=== PATIENT | male | born 1955 | race Caucasian/White ===

== ENCOUNTER 2018-10-28 08:11 | Day surgery (SDC) | payer MEDICARE, MEDICAID ==
[~2018-10-28 08:11] MED LIST: AMLO2.5T2 PO; ASPI-1009 PO; BECL8.7A5 IH; GLIP10TA11 PO; LISI-222 PO; METF500T PO; METO25TA6 PO; PANT-47 PO; PRAV10TA38 PO
[2018-10-28] MEDS ORDERED: LIDOcaine/PRILOcaine 5gm cream TP ONE (10:03)
--- NOTE | 2018-10-28 11:30 | NUR ---
Patient ambulated independently from [facility] and was admitted to outpatient wound care for physician visit with Matthew Santos MD. Dressing removed, wound cleansed. New patient assessment completed with review of patient's medical history and current medications. 0957 - blood glucose 189. Patient instructed that elevated blood sugars delay healing of the wound and can cause further complications including but not limited to amputation of toes or feet. 1045 - Dr. Santos at bedside accompanied by RN. Wound assessed, time out performed by MD/RN. Wound debrided as detailed in the physician progress/procedure note. Plan of care discussed with patient. Dressings placed per MD orders. Patient instructed on the signs and symptoms of infection and to call the Wound Center if any occur or to go to the ED if we are closed: Increased pain in wound Increase in drainage from the wound Redness in the skin surrounding the wound Bleeding from the wound Temperature of 101 or greater Patient instructed that the weight of their body puts a large amount of pressure on their wounds. This pressure keeps the new tissue from growing and inhibits new blood vessels from forming. Explained that, if they continue to bear weight on a body part that has a wound, the time it takes to heal the wound increases, the wound may get worse or the wound may not heal at all. Patient verbalized understanding of all discharge instructions and plan of care and ambulated independently out to [facility] in stable condition with no sign or symptom of distress at time of discharge.
[2018-10-28] MEDS ORDERED: SULF-14 PO (15:06)
[2018-10-28] MEDS ORDERED: NITR0.4T51 SL (15:06)
[2018-10-28] MEDS ORDERED: FLO0.4C PO (15:06)
[2018-10-28] MEDS ORDERED: ROSU20TA2 PO (15:06)
[2018-10-28] MEDS ORDERED: EMPA10TA PO (15:06)
[2018-10-28] MEDS ORDERED: ERGO50CA (15:06)
[2018-10-28] MEDS ORDERED: FURO-150 PO (15:06)
[2018-10-28] MEDS ORDERED: BUDE10.2 INH (15:06)
[2018-10-28] MEDS ORDERED: ISOS30TA9 PO (15:06)
== END 2018-10-28 11:00 | disposition home or self-care (01) ==
LOC: WOUND CARE 08:11
PROVIDERS: ATTEND Surgery
DX: E11.621 Type 2 diabetes mellitus with foot ulcer (principal); L97.412 Non-pressure chronic ulcer of right heel and midfoot with fat layer exposed; E11.65 Type 2 diabetes mellitus with hyperglycemia; E11.40 Type 2 diabetes mellitus with diabetic neuropathy, unspecified
CPT/HCPCS: 36416; 82948; 97597; A6196; A6446

== ENCOUNTER 2018-11-01 09:26 | Day surgery (SDC) | payer MEDICARE, MEDICAID ==
[~2018-11-01 09:26] MED LIST changes: -BECL8.7A5 IH; +BUDE10.2 INH; +EMPA10TA PO; +ERGO50CA; +FLO0.4C PO; +FURO-150 PO; +ISOS30TA9 PO; +NITR0.4T51 SL; -PANT-47 PO; -PRAV10TA38 PO; +ROSU20TA2 PO; +SULF-14 PO
--- NOTE | 2018-11-01 13:00 | NUR ---
Patient ambulated independently from [facility] and was admitted to outpatient wound care for physician visit with Matthew Santos MD. Dressing removed, wound cleansed. pbx technician to bedside for arterial studies. Patient assessed for changes in conditions, medications and medical history. 1114 - blood glucose 105. Patient instructed that elevated blood sugars delay healing of the wound and can cause further complications including but not limited to amputation of toes or feet. 1220 - Dr. Santos at bedside accompanied by RN. Wound assessed, time out performed by MD/RN. Wound debrided as detailed in the physician progress/procedure note. Plan of care discussed with patient. Dressings placed per MD orders. Patient instructed on the signs and symptoms of infection and to call the Wound Center if any occur or to go to the ED if we are closed: Increased pain in wound Increase in drainage from the wound Redness in the skin surrounding the wound Bleeding from the wound Temperature of 101 or greater Patient instructed that the weight of their body puts a large amount of pressure on their wounds. This pressure keeps the new tissue from growing and inhibits new blood vessels from forming. Explained that, if they continue to bear weight on a body part that has a wound, the time it takes to heal the wound increases, the wound may get worse or the wound may not heal at all. Patient verbalized understanding of all discharge instructions and plan of care and ambulated independently out to [facility] in stable condition with no sign or symptom of distress at time of discharge.
[2018-11-01] MEDS ORDERED: CEPH-572 PO (15:12)
[2018-11-03] MEDS ORDERED: BENZ-16 PO (12:54)
[2018-11-03] MEDS ORDERED: AZIT-63 PO (12:54)
[2018-11-03] MEDS ORDERED: PRED20TA PO (12:54)
== END 2018-11-01 13:01 | disposition home or self-care (01) ==
LOC: WOUND CARE 09:26
PROVIDERS: ATTEND Surgery
DX: E11.621 Type 2 diabetes mellitus with foot ulcer (principal); L97.412 Non-pressure chronic ulcer of right heel and midfoot with fat layer exposed; L97.311 Non-pressure chronic ulcer of right ankle limited to breakdown of skin; L89.512 Pressure ulcer of right ankle, stage 2; E11.65 Type 2 diabetes mellitus with hyperglycemia; I48.92 Unspecified atrial flutter; E11.39 Type 2 diabetes mellitus with other diabetic ophthalmic complication; H40.9 Unspecified glaucoma; I12.9 Hypertensive chronic kidney disease with stage 1 through stage 4 chronic kidney disease, or unspecified chronic kidney disease; E11.22 Type 2 diabetes mellitus with diabetic chronic kidney disease; N18.4 Chronic kidney disease, stage 4 (severe); D63.1 Anemia in chronic kidney disease; J44.9 Chronic obstructive pulmonary disease, unspecified; E78.5 Hyperlipidemia, unspecified; Z79.01 Long term (current) use of anticoagulants; Z95.1 Presence of aortocoronary bypass graft; Z79.82 Long term (current) use of aspirin; Z87.891 Personal history of nicotine dependence
CPT/HCPCS: 36416; 82948; 93922; 93926; 97597; A6196; A6446

== ENCOUNTER 2018-11-08 07:40 | Day surgery (SDC) | payer MEDICARE, MEDICAID ==
[~2018-11-08 07:40] MED LIST changes: +AZIT-63 PO; +BENZ-16 PO; +CEPH-572 PO; +PRED20TA PO
[2018-11-08] MEDS ORDERED: LIDOcaine/PRILOcaine 5gm cream TP ONE (09:33)
--- NOTE | 2018-11-08 15:17 | NUR ---
Patient ambulated independently from [facility] and was admitted to outpatient wound care for physician visit. Dressings removed, wound cleansed. Patient assessment completed with review of patient's medical history and current medications. Blood Glucose= 148 @ 0842 1505-Dr. Santos at bedside accompanied by RN. Wound assessed, time-out performed by MD/RN. Wound debrided as detailed in the physician progress/procedure note. Plan of care discussed with patient. Dressings placed per MD orders. Patient instructed on the signs and symptoms of infection and to call the Wound Center if any occur or to go to the ED if we are closed: Increased pain in the wound Increase in drainage from the wound Redness in the skin surrounding the wound Bleeding from the wound Temperature of 101F or greater Patient instructed that the weight of their body puts a large amount of pressure on their wounds. This pressure keeps the new tissue from growing and inhibits new blood vessels from forming. Explained that, if they continue to bear weight on a body part that has a wound, the time it takes to heal the wound increases, the wound may get worse, or the wound may not heal at all. Patient verbalized understanding of all discharge instructions and plan of care. Patient ambulated independently out to [facility] in stable condition with no signs or symptoms of distress at time of discharge.
== END 2018-11-08 10:11 | disposition home or self-care (01) ==
LOC: WOUND CARE 07:40
PROVIDERS: ATTEND Surgery
DX: E11.621 Type 2 diabetes mellitus with foot ulcer (principal); L97.412 Non-pressure chronic ulcer of right heel and midfoot with fat layer exposed; L89.512 Pressure ulcer of right ankle, stage 2; E11.65 Type 2 diabetes mellitus with hyperglycemia; I48.92 Unspecified atrial flutter; E11.39 Type 2 diabetes mellitus with other diabetic ophthalmic complication; H40.9 Unspecified glaucoma; I12.9 Hypertensive chronic kidney disease with stage 1 through stage 4 chronic kidney disease, or unspecified chronic kidney disease; E11.22 Type 2 diabetes mellitus with diabetic chronic kidney disease; N18.4 Chronic kidney disease, stage 4 (severe); D63.1 Anemia in chronic kidney disease; J44.9 Chronic obstructive pulmonary disease, unspecified; E78.5 Hyperlipidemia, unspecified; Z79.01 Long term (current) use of anticoagulants; Z95.1 Presence of aortocoronary bypass graft; Z79.82 Long term (current) use of aspirin; Z87.891 Personal history of nicotine dependence
CPT/HCPCS: 36416; 82948; 97597; A6021; A6446

== ENCOUNTER 2018-11-12 07:24 | Day surgery (SDC) | payer MEDICARE, MEDICAID ==
[~2018-11-12] VITALS: Ht 175.3 cm; Wt 91.5 kg
[~2018-11-12 07:24] MED LIST changes: -PRED20TA PO
[2018-11-12] MEDS ORDERED: sodium bicarbonate (8.4%) inj. 150 ML in dextrose 5%-water 1,000 ML IV ONE (07:55)
[2018-11-12] MEDS ORDERED: acetylcysteine 200 MG/ml 4ml vial PO SCH (08:00)
[2018-11-12] MEDS ORDERED: METO-467 PO (08:08)
[2018-11-12] MEDS ORDERED: EMPA10TA PO (08:14)
[2018-11-12] MEDS ORDERED: BENZ-16 PO (08:14)
[2018-11-12] MEDS ORDERED: ROSU20TA2 PO (08:14)
[2018-11-12] MEDS ORDERED: GLIP10TA11 PO (08:14)
[2018-11-12 08:22] VITALS: BP 138/74
[2018-11-12] MEDS ORDERED: iohexol 350MG/ML 100ml bottle IV ONE (09:32)
[2018-11-12] MEDS ORDERED: iohexol 350 MG/ML 50ML vial IV ONE (09:33)
[2018-11-12 15:15] VITALS: BP 132/73
[2018-11-13] MEDS ORDERED: MESSAGE TO NURSING PO NR (10:00)
== END 2018-11-12 15:15 | disposition home or self-care (01) ==
LOC: SSTAY O 07:24
PROVIDERS: ATTEND Surgery
DX: I70.203 Unspecified atherosclerosis of native arteries of extremities, bilateral legs (principal)
CPT/HCPCS: 75635; 82948; Q9967

== ENCOUNTER 2018-11-15 07:55 | Day surgery (SDC) | payer MEDICARE, MEDICAID ==
[~2018-11-15 07:55] MED LIST changes: -ASPI-1009 PO; -AZIT-63 PO; -CEPH-572 PO; +METO-467 PO; -METO25TA6 PO; -SULF-14 PO
[2018-11-15] MEDS ORDERED: LIDOcaine/PRILOcaine 5gm cream TP ONE (09:43)
--- NOTE | 2018-11-15 16:17 | NUR ---
Patient ambulated independently from [facility] and was admitted to outpatient wound care for physician visit with Matthew Santos MD. Dressing removed, wound cleansed and Emla cream applied per order. Patient assessed for changes in conditions, medications and medical history. Dr. Santos at bedside accompanied by RN. Wound assessed, time out performed by MD/RN. Wound debrided as detailed in the physician progress/procedure note. Matrix graft applied. Plan of care discussed with patient. Dressings placed per MD orders. Patient instructed on the signs and symptoms of infection and to call the Wound Center if any occur or to go to the ED if we are closed: Increased pain in wound Increase in drainage from the wound Redness in the skin surrounding the wound Bleeding from the wound Temperature of 101 or greater Patient instructed that elevated blood sugars delay healing of the wound and can cause further complications including but not limited to amputation of toes or feet. Patient instructed that the weight of their body puts a large amount of pressure on their wounds. This pressure keeps the new tissue from growing and inhibits new blood vessels from forming. Explained that, if they continue to bear weight on a body part that has a wound, the time it takes to heal the wound increases, the wound may get worse or the wound may not heal at all. Patient verbalized understanding of all discharge instructions and plan of care and ambulated independently out to [facility] in stable condition with no sign or symptom of distress at time of discharge. Addendum: 11/15/18 at 1619 by Jen Rosa RN Amended: Links added.
== END 2018-11-15 10:05 | disposition home or self-care (01) ==
LOC: WOUND CARE 07:55
PROVIDERS: ATTEND Surgery
DX: E11.621 Type 2 diabetes mellitus with foot ulcer (principal); L97.412 Non-pressure chronic ulcer of right heel and midfoot with fat layer exposed; L97.511 Non-pressure chronic ulcer of other part of right foot limited to breakdown of skin; E11.65 Type 2 diabetes mellitus with hyperglycemia; I48.92 Unspecified atrial flutter; E11.39 Type 2 diabetes mellitus with other diabetic ophthalmic complication; H40.9 Unspecified glaucoma; E11.40 Type 2 diabetes mellitus with diabetic neuropathy, unspecified; I12.9 Hypertensive chronic kidney disease with stage 1 through stage 4 chronic kidney disease, or unspecified chronic kidney disease; E11.22 Type 2 diabetes mellitus with diabetic chronic kidney disease; N18.4 Chronic kidney disease, stage 4 (severe); D63.1 Anemia in chronic kidney disease; J44.9 Chronic obstructive pulmonary disease, unspecified; E78.5 Hyperlipidemia, unspecified; Z79.01 Long term (current) use of anticoagulants; Z95.1 Presence of aortocoronary bypass graft; Z79.82 Long term (current) use of aspirin; Z87.891 Personal history of nicotine dependence
CPT/HCPCS: 36416; 82948; A6209; C5275; Q4102; A6250; A6446

== ENCOUNTER 2018-11-22 07:50 | Day surgery (SDC) | payer MEDICARE, MEDICAID ==
--- NOTE | 2018-11-22 15:11 | NUR ---
Patient ambulated independently from [facility] and was admitted to outpatient wound care for physician visit with Matthew Santos MD. Dressing removed, wound cleansed and lidocaine applied per order. Patient assessed for changes in conditions, medications and medical history. Dr. Santos at bedside accompanied by RN. Wound assessed, time out performed by MD/RN. Wound debrided as detailed in the physician progress/procedure note. Plan of care discussed with patient. Dressings placed per MD orders. Patient instructed on the signs and symptoms of infection and to call the Wound Center if any occur or to go to the ED if we are closed: Increased pain in wound Increase in drainage from the wound Redness in the skin surrounding the wound Bleeding from the wound Temperature of 101 or greater Patient instructed that elevated blood sugars delay healing of the wound and can cause further complications including but not limited to amputation of toes or feet. Patient instructed that the weight of their body puts a large amount of pressure on their wounds. This pressure keeps the new tissue from growing and inhibits new blood vessels from forming. Explained that, if they continue to bear weight on a body part that has a wound, the time it takes to heal the wound increases, the wound may get worse or the wound may not heal at all. Patient verbalized understanding of all discharge instructions and plan of care and ambulated independently out to [facility] in stable condition with no sign or symptom of distress at time of discharge. Addendum: 11/22/18 at 1512 by Jen Rosa RN Amended: Links added.
== END 2018-11-22 10:25 | disposition home or self-care (01) ==
LOC: WOUND CARE 07:50
PROVIDERS: ATTEND Surgery
DX: E11.621 Type 2 diabetes mellitus with foot ulcer (principal); L97.412 Non-pressure chronic ulcer of right heel and midfoot with fat layer exposed; L97.511 Non-pressure chronic ulcer of other part of right foot limited to breakdown of skin; E11.65 Type 2 diabetes mellitus with hyperglycemia; I48.92 Unspecified atrial flutter; E11.39 Type 2 diabetes mellitus with other diabetic ophthalmic complication; H40.9 Unspecified glaucoma; E11.40 Type 2 diabetes mellitus with diabetic neuropathy, unspecified; I12.9 Hypertensive chronic kidney disease with stage 1 through stage 4 chronic kidney disease, or unspecified chronic kidney disease; E11.22 Type 2 diabetes mellitus with diabetic chronic kidney disease; N18.4 Chronic kidney disease, stage 4 (severe); D63.1 Anemia in chronic kidney disease; J44.9 Chronic obstructive pulmonary disease, unspecified; E78.5 Hyperlipidemia, unspecified; Z79.01 Long term (current) use of anticoagulants; Z95.1 Presence of aortocoronary bypass graft; Z79.82 Long term (current) use of aspirin; Z87.891 Personal history of nicotine dependence
CPT/HCPCS: 36416; 82948; A6021; A6206; A6446

== ENCOUNTER 2018-11-29 07:45 | Day surgery (SDC) | payer MEDICARE, MEDICAID ==
[2018-11-29] MEDS ORDERED: LIDOcaine/PRILOcaine 5gm cream TP ONE (08:45)
--- NOTE | 2018-11-29 10:00 | NUR ---
Patient ambulated independently from [facility] and was admitted to outpatient wound care for physician visit with Matthew Santos MD. Dressing removed, wound cleansed and Emla cream applied per order. Patient assessed for changes in conditions, medications and medical history. 08 - blood glucose 122. Patient instructed that elevated blood sugars delay healing of the wound and can cause further complications including but not limited to amputation of toes or feet. 929 - Dr. Santos at bedside accompanied by RN. Wound assessed, time out performed by MD/RN. Wound debrided and procedure performed as detailed in the physician progress/procedure note. Plan of care discussed with patient. Dressings placed per MD orders. Patient instructed on the signs and symptoms of infection and to call the Wound Center if any occur or to go to the ED if we are closed: Increased pain in wound Increase in drainage from the wound Redness in the skin surrounding the wound Bleeding from the wound Temperature of 101 or greater Patient instructed that the weight of their body puts a large amount of pressure on their wounds. This pressure keeps the new tissue from growing and inhibits new blood vessels from forming. Explained that, if they continue to bear weight on a body part that has a wound, the time it takes to heal the wound increases, the wound may get worse or the wound may not heal at all. Patient verbalized understanding of all discharge instructions and plan of care and ambulated independently out to [facility] in stable condition with no sign or symptom of distress at time of discharge.
== END 2018-11-29 10:08 | disposition home or self-care (01) ==
LOC: WOUND CARE 07:45
PROVIDERS: ATTEND Surgery
DX: E11.621 Type 2 diabetes mellitus with foot ulcer (principal); L97.412 Non-pressure chronic ulcer of right heel and midfoot with fat layer exposed; L97.511 Non-pressure chronic ulcer of other part of right foot limited to breakdown of skin; E11.65 Type 2 diabetes mellitus with hyperglycemia; I48.92 Unspecified atrial flutter; E11.39 Type 2 diabetes mellitus with other diabetic ophthalmic complication; H40.9 Unspecified glaucoma; E11.40 Type 2 diabetes mellitus with diabetic neuropathy, unspecified; I12.9 Hypertensive chronic kidney disease with stage 1 through stage 4 chronic kidney disease, or unspecified chronic kidney disease; E11.22 Type 2 diabetes mellitus with diabetic chronic kidney disease; N18.4 Chronic kidney disease, stage 4 (severe); D63.1 Anemia in chronic kidney disease; J44.9 Chronic obstructive pulmonary disease, unspecified; E78.5 Hyperlipidemia, unspecified; Z79.01 Long term (current) use of anticoagulants; Z95.1 Presence of aortocoronary bypass graft; Z79.82 Long term (current) use of aspirin; Z87.891 Personal history of nicotine dependence
CPT/HCPCS: 15275; 36416; 82948; A6209; Q4106; A6250; A6446

== ENCOUNTER 2018-12-06 07:45 | Outpatient (CLI) | payer MEDICARE, MEDICAID ==
--- NOTE | 2018-12-06 10:30 | NUR ---
Patient ambulated independently from [facility] and was admitted to outpatient wound care for physician visit with Matthew Santos MD. Dressing removed, wound cleansed and lidocaine applied per order. Patient assessed for changes in conditions, medications and medical history. 0846 - blood glucose 143. Patient instructed that elevated blood sugars delay healing of the wound and can cause further complications including but not limited to amputation of toes or feet. 09 - Dr. Santos at bedside accompanied by RN. Wound assessed by MD, orders written. Plan of care discussed with patient. Dressings placed per MD orders. Patient instructed on the signs and symptoms of infection and to call the Wound Center if any occur or to go to the ED if we are closed: Increased pain in wound Increase in drainage from the wound Redness in the skin surrounding the wound Bleeding from the wound Temperature of 101 or greater Patient instructed that the weight of their body puts a large amount of pressure on their wounds. This pressure keeps the new tissue from growing and inhibits new blood vessels from forming. Explained that, if they continue to bear weight on a body part that has a wound, the time it takes to heal the wound increases, the wound may get worse or the wound may not heal at all. Patient verbalized understanding of all discharge instructions and plan of care and ambulated independently out to [facility] in stable condition with no sign or symptom of distress at time of discharge.
== END 2018-12-06 09:50 | disposition home or self-care (01) ==
LOC: WOUND CARE 07:45 → EDSTATUS 08:30 → WOUND CARE 09:50
PROVIDERS: ATTEND Surgery
DX: E11.621 Type 2 diabetes mellitus with foot ulcer (principal); L97.412 Non-pressure chronic ulcer of right heel and midfoot with fat layer exposed; L97.511 Non-pressure chronic ulcer of other part of right foot limited to breakdown of skin; E11.65 Type 2 diabetes mellitus with hyperglycemia; I48.92 Unspecified atrial flutter; E11.39 Type 2 diabetes mellitus with other diabetic ophthalmic complication; H40.9 Unspecified glaucoma; E11.40 Type 2 diabetes mellitus with diabetic neuropathy, unspecified; I12.9 Hypertensive chronic kidney disease with stage 1 through stage 4 chronic kidney disease, or unspecified chronic kidney disease; E11.22 Type 2 diabetes mellitus with diabetic chronic kidney disease; N18.4 Chronic kidney disease, stage 4 (severe); D63.1 Anemia in chronic kidney disease; J44.9 Chronic obstructive pulmonary disease, unspecified; E78.5 Hyperlipidemia, unspecified; Z79.01 Long term (current) use of anticoagulants; Z95.1 Presence of aortocoronary bypass graft; Z79.82 Long term (current) use of aspirin; Z87.891 Personal history of nicotine dependence
CPT/HCPCS: 36416; 82948; A6222; G0463; A6021; A6212

== ENCOUNTER 2018-12-16 07:45 | Day surgery (SDC) | payer MEDICARE, MEDICAID ==
[2018-12-16] MEDS ORDERED: LIDOcaine/PRILOcaine 5gm cream TP ONE (09:05)
--- NOTE | 2018-12-16 13:46 | NUR ---
Patient ambulated independently from [facility] and was admitted to outpatient wound care for physician visit with Matthew Santos MD. Dressing removed, wound cleansed and lidocaine applied per order. Patient assessed for changes in conditions, medications and medical history. Dr. Santos at bedside accompanied by RN. Wound assessed and no debridement was done. Plan of care discussed with patient. Dressings placed per MD orders. Patient instructed on the signs and symptoms of infection and to call the Wound Center if any occur or to go to the ED if we are closed: Increased pain in wound Increase in drainage from the wound Redness in the skin surrounding the wound Bleeding from the wound Temperature of 101 or greater Patient instructed that elevated blood sugars delay healing of the wound and can cause further complications including but not limited to amputation of toes or feet. Patient instructed that the weight of their body puts a large amount of pressure on their wounds. This pressure keeps the new tissue from growing and inhibits new blood vessels from forming. Explained that, if they continue to bear weight on a body part that has a wound, the time it takes to heal the wound increases, the wound may get worse or the wound may not heal at all. Patient verbalized understanding of all discharge instructions and plan of care and ambulated independently out to [facility] in stable condition with no sign or symptom of distress at time of discharge. Addendum: 12/16/18 at 1352 by Jen Rosa RN Amended: Links added.
== END 2018-12-16 10:05 | disposition home or self-care (01) ==
LOC: WOUND CARE 07:45
PROVIDERS: ATTEND Surgery
DX: E11.621 Type 2 diabetes mellitus with foot ulcer (principal); L97.412 Non-pressure chronic ulcer of right heel and midfoot with fat layer exposed; L97.511 Non-pressure chronic ulcer of other part of right foot limited to breakdown of skin; E11.65 Type 2 diabetes mellitus with hyperglycemia; E11.39 Type 2 diabetes mellitus with other diabetic ophthalmic complication; H40.9 Unspecified glaucoma; E11.40 Type 2 diabetes mellitus with diabetic neuropathy, unspecified; I12.9 Hypertensive chronic kidney disease with stage 1 through stage 4 chronic kidney disease, or unspecified chronic kidney disease; E11.22 Type 2 diabetes mellitus with diabetic chronic kidney disease; N18.4 Chronic kidney disease, stage 4 (severe); D63.1 Anemia in chronic kidney disease; I48.92 Unspecified atrial flutter; J44.9 Chronic obstructive pulmonary disease, unspecified; E78.5 Hyperlipidemia, unspecified; Z79.01 Long term (current) use of anticoagulants; Z95.1 Presence of aortocoronary bypass graft; Z79.82 Long term (current) use of aspirin; Z87.891 Personal history of nicotine dependence
CPT/HCPCS: 36416; 82948; G0463; A6021; A6206

== ENCOUNTER 2018-12-20 07:45 | Day surgery (SDC) | payer MEDICARE, MEDICAID ==
[2018-12-20] MEDS ORDERED: LIDOcaine/PRILOcaine 5gm cream TP ONE ×2 (09:02→09:17)
--- NOTE | 2018-12-20 10:30 | NUR ---
Patient ambulated independently from [facility] and was admitted to outpatient wound care for physician visit with Matthew Santos MD. Dressing removed, wound cleansed and Emla cream applied per order. Patient assessed for changes in conditions, medications and medical history. 903 - blood glucose 139. Patient instructed that elevated blood sugars delay healing of the wound and can cause further complications including but not limited to amputation of toes or feet. 939 - Dr. Santos at bedside accompanied by RN. Wound assessed, time out performed by MD/RN. Wound debrided as detailed in the physician progress/procedure note. Plan of care discussed with patient. Dressings placed per MD orders. Patient instructed on the signs and symptoms of infection and to call the Wound Center if any occur or to go to the ED if we are closed: Increased pain in wound Increase in drainage from the wound Redness in the skin surrounding the wound Bleeding from the wound Temperature of 101 or greater Patient instructed that the weight of their body puts a large amount of pressure on their wounds. This pressure keeps the new tissue from growing and inhibits new blood vessels from forming. Explained that, if they continue to bear weight on a body part that has a wound, the time it takes to heal the wound increases, the wound may get worse or the wound may not heal at all. Patient verbalized understanding of all discharge instructions and plan of care and ambulated independently out to [facility] in stable condition with no sign or symptom of distress at time of discharge.
== END 2018-12-20 09:59 | disposition home or self-care (01) ==
LOC: WOUND CARE 07:45 → EDSTATUS 08:00 → WOUND CARE 09:59
PROVIDERS: ATTEND Surgery
DX: E11.621 Type 2 diabetes mellitus with foot ulcer (principal); L97.412 Non-pressure chronic ulcer of right heel and midfoot with fat layer exposed; L97.511 Non-pressure chronic ulcer of other part of right foot limited to breakdown of skin; E11.65 Type 2 diabetes mellitus with hyperglycemia; E11.39 Type 2 diabetes mellitus with other diabetic ophthalmic complication; H40.9 Unspecified glaucoma; E11.40 Type 2 diabetes mellitus with diabetic neuropathy, unspecified; I12.9 Hypertensive chronic kidney disease with stage 1 through stage 4 chronic kidney disease, or unspecified chronic kidney disease; E11.22 Type 2 diabetes mellitus with diabetic chronic kidney disease; N18.4 Chronic kidney disease, stage 4 (severe); D63.1 Anemia in chronic kidney disease; I48.92 Unspecified atrial flutter; J44.9 Chronic obstructive pulmonary disease, unspecified; E78.5 Hyperlipidemia, unspecified; Z79.01 Long term (current) use of anticoagulants; Z95.1 Presence of aortocoronary bypass graft; Z79.82 Long term (current) use of aspirin; Z87.891 Personal history of nicotine dependence
CPT/HCPCS: 36416; 82948; 97597; A6021; A6206; A6446

== ENCOUNTER 2018-12-27 07:50 | Day surgery (SDC) | payer MEDICARE, MEDICAID ==
[2018-12-27] MEDS ORDERED: LIDOcaine/PRILOcaine 5gm cream TP ONE (08:56)
--- NOTE | 2018-12-27 14:18 | NUR ---
Patient ambulated independently from [facility] and was admitted to outpatient wound care for physician visit with Matthew Santos MD. Dressing removed, wound cleansed and lidocaine applied per order. Patient assessed for changes in conditions, medications and medical history. Dr. Santos at bedside accompanied by RN. Wound assessed, time out performed by MD/RN. Wound debrided as detailed in the physician progress/procedure note. Plan of care discussed with patient. Dressings placed per MD orders. Patient instructed on the signs and symptoms of infection and to call the Wound Center if any occur or to go to the ED if we are closed: Increased pain in wound Increase in drainage from the wound Redness in the skin surrounding the wound Bleeding from the wound Temperature of 101 or greater Patient instructed that elevated blood sugars delay healing of the wound and can cause further complications including but not limited to amputation of toes or feet. Patient instructed that the weight of their body puts a large amount of pressure on their wounds. This pressure keeps the new tissue from growing and inhibits new blood vessels from forming. Explained that, if they continue to bear weight on a body part that has a wound, the time it takes to heal the wound increases, the wound may get worse or the wound may not heal at all. Patient verbalized understanding of all discharge instructions and plan of care and ambulated independently out to [facility] in stable condition with no sign or symptom of distress at time of discharge. Addendum: 12/27/18 at 1419 by Jen Rosa RN Amended: Links added.
== END 2018-12-27 10:30 | disposition home or self-care (01) ==
LOC: WOUND CARE 07:50
PROVIDERS: ATTEND Surgery
DX: E11.621 Type 2 diabetes mellitus with foot ulcer (principal); L97.412 Non-pressure chronic ulcer of right heel and midfoot with fat layer exposed; L97.511 Non-pressure chronic ulcer of other part of right foot limited to breakdown of skin; E11.65 Type 2 diabetes mellitus with hyperglycemia; E11.39 Type 2 diabetes mellitus with other diabetic ophthalmic complication; H40.9 Unspecified glaucoma; E11.40 Type 2 diabetes mellitus with diabetic neuropathy, unspecified; I12.9 Hypertensive chronic kidney disease with stage 1 through stage 4 chronic kidney disease, or unspecified chronic kidney disease; E11.22 Type 2 diabetes mellitus with diabetic chronic kidney disease; N18.4 Chronic kidney disease, stage 4 (severe); D63.1 Anemia in chronic kidney disease; I48.92 Unspecified atrial flutter; J44.9 Chronic obstructive pulmonary disease, unspecified; E78.5 Hyperlipidemia, unspecified; Z79.01 Long term (current) use of anticoagulants; Z95.1 Presence of aortocoronary bypass graft; Z79.82 Long term (current) use of aspirin; Z87.891 Personal history of nicotine dependence
CPT/HCPCS: 15275; 82948; A6209; A6222; Q4106; 15276; A6250; A6446

== ENCOUNTER 2019-01-03 07:56 | Day surgery (SDC) | payer MEDICARE, MEDICAID ==
--- NOTE | 2019-01-03 14:00 | NUR ---
Patient ambulated independently from [facility] and was admitted to outpatient wound care for physician visit with Matthew Santos MD. Dressing removed, wound cleansed and lidocaine applied per order. Patient assessed for changes in conditions, medications and medical history. Dr. Santos at bedside accompanied by RN. Wound assessed, time out performed by MD/RN. Wound debrided as detailed in the physician progress/procedure note. applied a graft. Plan of care discussed with patient. Dressings placed per MD orders. Patient instructed on the signs and symptoms of infection and to call the Wound Center if any occur or to go to the ED if we are closed: Increased pain in wound Increase in drainage from the wound Redness in the skin surrounding the wound Bleeding from the wound Temperature of 101 or greater Patient instructed that elevated blood sugars delay healing of the wound and can cause further complications including but not limited to amputation of toes or feet. Patient instructed that the weight of their body puts a large amount of pressure on their wounds. This pressure keeps the new tissue from growing and inhibits new blood vessels from forming. Explained that, if they continue to bear weight on a body part that has a wound, the time it takes to heal the wound increases, the wound may get worse or the wound may not heal at all. Patient verbalized understanding of all discharge instructions and plan of care and ambulated independently out to [facility] in stable condition with no sign or symptom of distress at time of discharge. Addendum: 01/03/19 at 1403 by Jen Rosa RN Amended: Links added.
== END 2019-01-03 10:34 | disposition home or self-care (01) ==
LOC: WOUND CARE 07:56
PROVIDERS: ATTEND Surgery
DX: E11.621 Type 2 diabetes mellitus with foot ulcer (principal); L97.412 Non-pressure chronic ulcer of right heel and midfoot with fat layer exposed; L97.511 Non-pressure chronic ulcer of other part of right foot limited to breakdown of skin; E11.65 Type 2 diabetes mellitus with hyperglycemia; E11.39 Type 2 diabetes mellitus with other diabetic ophthalmic complication; H40.9 Unspecified glaucoma; E11.40 Type 2 diabetes mellitus with diabetic neuropathy, unspecified; I12.9 Hypertensive chronic kidney disease with stage 1 through stage 4 chronic kidney disease, or unspecified chronic kidney disease; E11.22 Type 2 diabetes mellitus with diabetic chronic kidney disease; N18.4 Chronic kidney disease, stage 4 (severe); D63.1 Anemia in chronic kidney disease; I48.92 Unspecified atrial flutter; J44.9 Chronic obstructive pulmonary disease, unspecified; E78.5 Hyperlipidemia, unspecified; Z79.01 Long term (current) use of anticoagulants; Z95.1 Presence of aortocoronary bypass graft; Z79.82 Long term (current) use of aspirin; Z87.891 Personal history of nicotine dependence
CPT/HCPCS: 15275; 36416; 82948; A6209; A6222; Q4106; A6250; A6446

== ENCOUNTER 2019-01-31 07:45 | Outpatient (CLI) | payer MEDICARE, MEDICAID ==
[2019-01-31] MEDS ORDERED: LIDOcaine/PRILOcaine 5gm cream TP ONE (08:40)
--- NOTE | 2019-01-31 16:12 | NUR ---
Patient ambulated independently from [facility] and was admitted to outpatient wound care for physician visit with Matthew Santos MD. Dressing removed, wound cleansed and Emla cream applied per order. Patient assessed for changes in conditions, medications and medical history. Dr. Santos at bedside accompanied by RN. Wound assessed and no debridement was done. Plan of care discussed with patient. Dressings placed per MD orders. Patient instructed on the signs and symptoms of infection and to call the Wound Center if any occur or to go to the ED if we are closed: Increased pain in wound Increase in drainage from the wound Redness in the skin surrounding the wound Bleeding from the wound Temperature of 101 or greater Patient instructed that elevated blood sugars delay healing of the wound and can cause further complications including but not limited to amputation of toes or feet. Patient instructed that the weight of their body puts a large amount of pressure on their wounds. This pressure keeps the new tissue from growing and inhibits new blood vessels from forming. Explained that, if they continue to bear weight on a body part that has a wound, the time it takes to heal the wound increases, the wound may get worse or the wound may not heal at all. Patient verbalized understanding of all discharge instructions and plan of care and ambulated independently out to [facility] in stable condition with no sign or symptom of distress at time of discharge. Addendum: 01/31/19 at 1613 by Jen Rosa RN Amended: Links added.
== END 2019-01-31 09:45 | disposition home or self-care (01) ==
LOC: WOUND CARE 07:45 → EDSTATUS 08:30 → WOUND CARE 09:45
PROVIDERS: ATTEND Surgery
DX: E11.621 Type 2 diabetes mellitus with foot ulcer (principal); L97.412 Non-pressure chronic ulcer of right heel and midfoot with fat layer exposed; L97.511 Non-pressure chronic ulcer of other part of right foot limited to breakdown of skin; E11.65 Type 2 diabetes mellitus with hyperglycemia; E11.39 Type 2 diabetes mellitus with other diabetic ophthalmic complication; H40.9 Unspecified glaucoma; E11.40 Type 2 diabetes mellitus with diabetic neuropathy, unspecified; I12.9 Hypertensive chronic kidney disease with stage 1 through stage 4 chronic kidney disease, or unspecified chronic kidney disease; E11.22 Type 2 diabetes mellitus with diabetic chronic kidney disease; N18.4 Chronic kidney disease, stage 4 (severe); D63.1 Anemia in chronic kidney disease; I48.92 Unspecified atrial flutter; J44.9 Chronic obstructive pulmonary disease, unspecified; E78.5 Hyperlipidemia, unspecified; Z79.01 Long term (current) use of anticoagulants; Z95.1 Presence of aortocoronary bypass graft; Z79.82 Long term (current) use of aspirin; Z87.891 Personal history of nicotine dependence
CPT/HCPCS: 36416; 82948; G0463; A4663; A6021; A6154; A6212

== ENCOUNTER 2019-02-07 07:45 | Day surgery (SDC) | payer MEDICARE, MEDICAID | END 2019-02-07 09:53 | disposition home or self-care (01) | LOC: WOUND CARE 07:45 | PROVIDERS: ATTEND Surgery | DX: E11.621 Type 2 diabetes mellitus with foot ulcer (principal); L97.412 Non-pressure chronic ulcer of right heel and midfoot with fat layer exposed; L97.511 Non-pressure chronic ulcer of other part of right foot limited to breakdown of skin; E11.65 Type 2 diabetes mellitus with hyperglycemia; E11.39 Type 2 diabetes mellitus with other diabetic ophthalmic complication; H40.9 Unspecified glaucoma; E11.40 Type 2 diabetes mellitus with diabetic neuropathy, unspecified; I12.9 Hypertensive chronic kidney disease with stage 1 through stage 4 chronic kidney disease, or unspecified chronic kidney disease; E11.22 Type 2 diabetes mellitus with diabetic chronic kidney disease; N18.4 Chronic kidney disease, stage 4 (severe); D63.1 Anemia in chronic kidney disease; I48.92 Unspecified atrial flutter; J44.9 Chronic obstructive pulmonary disease, unspecified; E78.5 Hyperlipidemia, unspecified; Z79.01 Long term (current) use of anticoagulants; Z95.1 Presence of aortocoronary bypass graft; Z79.82 Long term (current) use of aspirin; Z87.891 Personal history of nicotine dependence | CPT/HCPCS: 36416; 82948; 97597; A6222; A4663; A6021; A6154; A6212 ==

== ENCOUNTER 2019-02-23 07:29 | Outpatient (CLI) | payer MEDICARE, MEDICAID ==
[~2019-02-23 07:29] MED LIST changes: -FLO0.4C PO
== END 2019-02-23 10:12 | disposition home or self-care (01) ==
LOC: WOUND CARE 07:29 → EDSTATUS 08:30 → WOUND CARE 10:12
PROVIDERS: ATTEND Surgery
DX: E11.621 Type 2 diabetes mellitus with foot ulcer (principal); L97.412 Non-pressure chronic ulcer of right heel and midfoot with fat layer exposed; L97.511 Non-pressure chronic ulcer of other part of right foot limited to breakdown of skin; E11.65 Type 2 diabetes mellitus with hyperglycemia; E11.39 Type 2 diabetes mellitus with other diabetic ophthalmic complication; H40.9 Unspecified glaucoma; E11.40 Type 2 diabetes mellitus with diabetic neuropathy, unspecified; I12.9 Hypertensive chronic kidney disease with stage 1 through stage 4 chronic kidney disease, or unspecified chronic kidney disease; E11.22 Type 2 diabetes mellitus with diabetic chronic kidney disease; N18.4 Chronic kidney disease, stage 4 (severe); D63.1 Anemia in chronic kidney disease; I48.92 Unspecified atrial flutter; J44.9 Chronic obstructive pulmonary disease, unspecified; E78.5 Hyperlipidemia, unspecified; Z79.01 Long term (current) use of anticoagulants; Z95.1 Presence of aortocoronary bypass graft; Z79.82 Long term (current) use of aspirin; Z87.891 Personal history of nicotine dependence
CPT/HCPCS: 36416; 82948; 97597; A4663; A6021; A6154; A6212; A6446

== ENCOUNTER 2019-02-28 07:45 | Day surgery (SDC) | payer MEDICARE, MEDICAID | END 2019-02-28 09:18 | disposition home or self-care (01) | LOC: WOUND CARE 07:45 | PROVIDERS: ATTEND Surgery | DX: E11.621 Type 2 diabetes mellitus with foot ulcer (principal); L97.412 Non-pressure chronic ulcer of right heel and midfoot with fat layer exposed; L97.511 Non-pressure chronic ulcer of other part of right foot limited to breakdown of skin; E11.65 Type 2 diabetes mellitus with hyperglycemia; E11.39 Type 2 diabetes mellitus with other diabetic ophthalmic complication; H40.9 Unspecified glaucoma; E11.40 Type 2 diabetes mellitus with diabetic neuropathy, unspecified; I12.9 Hypertensive chronic kidney disease with stage 1 through stage 4 chronic kidney disease, or unspecified chronic kidney disease; E11.22 Type 2 diabetes mellitus with diabetic chronic kidney disease; N18.4 Chronic kidney disease, stage 4 (severe); D63.1 Anemia in chronic kidney disease; I48.92 Unspecified atrial flutter; J44.9 Chronic obstructive pulmonary disease, unspecified; E78.5 Hyperlipidemia, unspecified; Z79.01 Long term (current) use of anticoagulants; Z95.1 Presence of aortocoronary bypass graft; Z79.82 Long term (current) use of aspirin; Z87.891 Personal history of nicotine dependence | CPT/HCPCS: 36416; 82948; G0463; A4663 ==

== ENCOUNTER 2021-05-13 11:39 | Inpatient (IN) | payer MEDICARE, MEDICAID ==
[~2021-05-13] VITALS: Ht 175.3 cm; Wt 86.4 kg
[~2021-05-13 11:39] MED LIST changes: +ASPI-611 PO; -BENZ-16 PO; -EMPA10TA PO; +EMPA25TA PO; +FLO0.4C PO; +ISOS30TA84 PO; -ISOS30TA9 PO; -LISI-222 PO; +LISI20TA28 PO; +OMEG-79 PO
--- NOTE | 2021-05-13 12:15 | NUR ---
Pt is awake and alert. Pt was sent from [facility] due to sob and +Covid 19(new dx). Pt c/o cough with brown sputum and generalized weakness. Crackles and rhonchi B bases. Pt is on home O2 2L. Upon assessement he was on 3L NC and sats were 89%. Increased O2 to 5L NC. Now sats 92%.
[2021-05-13 13:12] LABS: BASOPHILS % (AUTO) 0.3 % (0-1); EOSINOPHILS % (AUTO) 0 % (0-6); HEMATOCRIT 39.5 % (42.0-52.0); HEMOGLOBIN 13.6 g/dl (14.0-17.9); LYMPHOCYTES # (AUTO) 0.7 X10'3 (1.1-4.8); LYMPHOCYTES % (AUTO) 12.2 % (21-51); MEAN CORPUSCULAR HEMOGLOBIN 29.1 PG (27.0-31.0); MEAN CORPUSCULAR HGB CONC 34.3 g/dL (33.0-36.5); MEAN CORPUSCULAR VOLUME 84.7 FL (78-98); MEAN PLATELET VOLUME 8.4 FL (7.4-10.4); MONOCYTES # (AUTO) 0.5 X10'3 (0-0.9); MONOCYTES % (AUTO) 9.6 % (2-12); NEUTROPHILS # (AUTO) 4.2 X10'3 (1.8-7.7); NEUTROPHILS % (AUTO) 77.9 % (42-75); PLATELET COUNT 185 X10'3 (140-440); RED BLOOD COUNT 4.66 X10'6 (4.70-6.10); RED CELL DISTRIBUTION WIDTH 14.2 % (11.5-14.5); WHITE BLOOD COUNT 5.4 X10'3 (4.5-11.0)
[2021-05-13 13:19] LABS: D-DIMER 1.49 MG/L FEU (0-0.50)
[2021-05-13 13:23] LABS: ALANINE AMINOTRANSFERASE 35 U/L (12-78); ALBUMIN 3.4 G/DL (3.4-5.0); ALBUMIN/GLOBULIN RATIO 0.9 (1.1-1.5); ALKALINE PHOSPHATASE 54 IU/L (46-116); ANION GAP 13 (8-16); ASPARTATE AMINO TRANSFERASE 45 U/L (10-37); BILIRUBIN,TOTAL 0.5 MG/DL (0.1-1.0); BLOOD UREA NITROGEN 54 MG/DL (7-18); CALCIUM 8.4 MG/DL (8.5-10.1); CHLORIDE 99 MMOL/L (99-107); GLUCOSE 216 MG/DL (70-104); POTASSIUM 4.9 MMOL/L (3.5-5.1); SODIUM 133 MMOL/L (135-145); TOTAL CARBON DIOXIDE 21.1 MMOL/L (24-32); TOTAL PROTEIN 7.2 G/DL (6.4-8.2); eGFR 38 ML/MIN
[2021-05-13] MEDS ORDERED: ringers solution, lactated 1000ml IV soln IV ONE (13:40)
[2021-05-13] MEDS ORDERED: dexamethasone sod phosphate 10mg/ml inj IV STA (13:55)
[2021-05-13] MEDS ORDERED: REMDESIVIR INJ 200 MG in normal saline 100ml IV soln 60 ML IV ONE (13:55)
[2021-05-13] MEDS ORDERED: dextrose 50%-water 50ml dispensing syringe IV PRN ×2 (14:05)
[2021-05-13] MEDS ORDERED: MESSAGE TO PHARMACY PO ONE (14:05)
[2021-05-13] MEDS ORDERED: HYDROcodone/acetaminophen 5mg/325mg tablet PO PRN (14:05)
[2021-05-13] MEDS ORDERED: morphine 2 MG/ML inj. syringe IV PRN ×2 (14:05)
[2021-05-13] MEDS ORDERED: ondansetron/PF 4mg/2ml inj IV PRN (14:05)
[2021-05-13] MEDS ORDERED: mag hydrox/Alum hydrox/simeth 30ml oral suspension PO PRN (14:05)
[2021-05-13] MEDS ORDERED: magnesium hydroxide 30ml (MOM) UD suspension PO PRN (14:05)
[2021-05-13] MEDS ORDERED: glucagon, human recombinant 1mg kit SUBCUT PRN (14:05)
[2021-05-13] MEDS ORDERED: acetaminophen 325mg tablet PO PRN ×2 (14:05)
[2021-05-13] MEDS ORDERED: dextrose ORAL solution 15 GM/59 ML bottle PO PRN ×2 (14:05)
[2021-05-13] MEDS ORDERED: HYDROcodone/acetaminophen 10/325mg tab PO PRN (14:05)
[2021-05-13] MEDS ORDERED: enoxaparin 100mg/ml syringe SUBCUT ONE (14:10)
[2021-05-13] MEDS ORDERED: REMDESIVIR 200 MG in NS 100ml IVPB Loading dose IV ONE (14:20)
[2021-05-13 14:42] LABS: PHOSPHORUS 4.7 MG/DL (2.3-4.5)
[2021-05-13 15:04] LABS: HEMOGLOBIN A1C 7.8 % (4.5-6.2)
[2021-05-13] MEDS ORDERED: ALBU18HF2 PO (15:12)
--- NOTE | 2021-05-13 17:34 | NUR ---
SISTER CALLED FOR UPDATE. WANTS A CALL BACK WHEN WE CAN. HER NUMBER IS IN HIS DEMOGRAPHICS
[2021-05-13] MEDS ORDERED: nitroGLYCERIN 0.4mg SUBLingual tab SL PRN (18:15)
--- NOTE | 2021-05-13 18:40 | NUR ---
Report given to HIREN Chaudhry in Ortho Unit.
[2021-05-13 19:15] VITALS: BP 138/67
[2021-05-13] MEDS: dexamethasone sod phosphate 10mg/ml inj IV SCH (19:59)
[2021-05-13] MEDS: metoprolol tartrate 25mg tablet PO SCH (20:00)
[2021-05-13] MEDS: docusate sod 100mg capsule PO SCH (20:00)
[2021-05-13] MEDS: insulin glargine (Lantus) pen - multi-dose SQ SCH (21:16)
[2021-05-13] MEDS: insulin Lispro (HumaLOG) vial - multi-dose SQ SCH (21:17)
[2021-05-13 22:00] VITALS: BP 126/70
[2021-05-14 02:00] VITALS: BP 147/80
[2021-05-14 06:00] VITALS: BP 151/76
--- NOTE | 2021-05-14 06:09 | NUR ---
Problems reprioritized. Patient report given, questions answered & plan of care reviewed with HIREN LOPEZ.
--- NOTE | 2021-05-14 06:17 | NUR ---
Patient in room ORTHO 4020A. I have received report from HIREN ACEVEDO and had the opportunity to ask questions and assume patient care.
[2021-05-14] MEDS: OMEGA-3/DHA/EPA/FISH OIL 1 EACH CAPSULE.DR PO SCH (07:39)
[2021-05-14] MEDS: dexamethasone sod phosphate 10mg/ml inj IV SCH ×2 (07:39→19:03)
[2021-05-14] MEDS: REMDESIVIR 100 MG in NS 100ml IVPB IV SCH (07:39)
[2021-05-14] MEDS: metoprolol tartrate 25mg tablet PO SCH ×2 (07:40→20:00)
[2021-05-14] MEDS: amLODIPine 2.5mg tablet PO SCH (07:40)
[2021-05-14] MEDS: lisinopril 20mg tablet PO SCH (07:40)
[2021-05-14] MEDS: docusate sod 100mg capsule PO SCH ×2 (07:41→20:00)
[2021-05-14] MEDS: aspirin 81mg, enteric-coated 1 TAB TABLET.DR PO SCH (07:41)
[2021-05-14] MEDS: isosorbide mononitrate 30mg tab.SR.24H PO SCH (07:41)
[2021-05-14] MEDS: furosemide 20MG tablet PO SCH (07:41)
[2021-05-14] MEDS: atorvastatin 20mg tablet PO SCH (07:41)
[2021-05-14 08:02] LABS: BASOPHILS % (AUTO) 0.1 % (0-1); EOSINOPHILS % (AUTO) 0 % (0-6); HEMATOCRIT 39.3 % (42.0-52.0); HEMOGLOBIN 13.4 g/dl (14.0-17.9); LYMPHOCYTES # (AUTO) 0.4 X10'3 (1.1-4.8); MEAN CORPUSCULAR HEMOGLOBIN 29.1 PG (27.0-31.0); MEAN CORPUSCULAR HGB CONC 34.1 g/dL (33.0-36.5); MEAN CORPUSCULAR VOLUME 85.2 FL (78-98); MEAN PLATELET VOLUME 8.5 FL (7.4-10.4); MONOCYTES # (AUTO) 0.4 X10'3 (0-0.9); MONOCYTES % (AUTO) 8.7 % (2-12); NEUTROPHILS # (AUTO) 3.6 X10'3 (1.8-7.7); NEUTROPHILS % (AUTO) 81.2 % (42-75); PLATELET COUNT 178 X10'3 (140-440); RED BLOOD COUNT 4.61 X10'6 (4.70-6.10); WHITE BLOOD COUNT 4.5 X10'3 (4.5-11.0)
[2021-05-14 08:24] LABS: ANION GAP 10 (8-16); BLOOD UREA NITROGEN 49 MG/DL (7-18); BUN/CREATININE RATIO 31.6 (5.4-32.0); CALCIUM 8.7 MG/DL (8.5-10.1); CHLORIDE 102 MMOL/L (99-107); CREATININE 1.55 MG/DL (0.60-1.10); GLUCOSE 245 MG/DL (70-104); POTASSIUM 5.4 MMOL/L (3.5-5.1); SODIUM 136 MMOL/L (135-145); TOTAL CARBON DIOXIDE 24.5 MMOL/L (24-32); eGFR 45 ML/MIN
[2021-05-14] MEDS: insulin Lispro (HumaLOG) vial - multi-dose SQ SCH ×4 (09:28→20:42)
[2021-05-14 10:00] VITALS: BP 139/95
--- NOTE | 2021-05-14 13:59 | NUR ---
DM Consult: Pt hx T2DM A1C 7.8 takes metformin BID, Glipizide Q12H, and daily Jardiance per EMR. DX COVID-19 pt increased to 15L high low salter from prior 5L NC per EMR. DM ed deferred until more appropriate this admit. Addendum: 05/14/21 at [address] Amended: Links added.
[2021-05-14 14:00] VITALS: BP 94/53
[2021-05-14 18:00] VITALS: BP 88/48
--- NOTE | 2021-05-14 18:16 | NUR ---
Patient in room ORTHO 4020. I have received report from HIREN LOPEZ and had the opportunity to ask questions and assume patient care.
--- NOTE | 2021-05-14 18:17 | NUR ---
Problems reprioritized. Patient report given, questions answered & plan of care reviewed with HIREN ACEVEDO.
[2021-05-14] MEDS: enoxaparin 40mg/0.4ml syringe SUBCUT SCH (19:04)
[2021-05-14] MEDS: insulin glargine (Lantus) pen - multi-dose SQ SCH (20:42)
[2021-05-14 22:00] VITALS: BP 122/66
[2021-05-15 02:00] VITALS: BP 124/61
--- NOTE | 2021-05-15 06:22 | NUR ---
Problems reprioritized. Patient report given, questions answered & plan of care reviewed with HIREN BARLOW.
[2021-05-15] MEDS: lisinopril 20mg tablet PO SCH (08:00)
[2021-05-15] MEDS: metoprolol tartrate 25mg tablet PO SCH ×2 (08:00→20:00)
[2021-05-15 08:14] LABS: BASOPHILS % (AUTO) 0 % (0-1); EOSINOPHILS % (AUTO) 0 % (0-6); HEMATOCRIT 37.7 % (42.0-52.0); HEMOGLOBIN 12.9 g/dl (14.0-17.9); LYMPHOCYTES # (AUTO) 0.5 X10'3 (1.1-4.8); LYMPHOCYTES % (AUTO) 6.7 % (21-51); MEAN CORPUSCULAR HEMOGLOBIN 28.9 PG (27.0-31.0); MEAN CORPUSCULAR HGB CONC 34.1 g/dL (33.0-36.5); MEAN CORPUSCULAR VOLUME 84.9 FL (78-98); MEAN PLATELET VOLUME 8.5 FL (7.4-10.4); MONOCYTES # (AUTO) 0.6 X10'3 (0-0.9); MONOCYTES % (AUTO) 7.5 % (2-12); NEUTROPHILS # (AUTO) 6.3 X10'3 (1.8-7.7); NEUTROPHILS % (AUTO) 85.8 % (42-75); PLATELET COUNT 227 X10'3 (140-440); RED BLOOD COUNT 4.45 X10'6 (4.70-6.10); RED CELL DISTRIBUTION WIDTH 14.1 % (11.5-14.5); WHITE BLOOD COUNT 7.4 X10'3 (4.5-11.0)
[2021-05-15 08:41] LABS: ALBUMIN 2.9 G/DL (3.4-5.0); ANION GAP 11 (8-16); BLOOD UREA NITROGEN 54 MG/DL (7-18); CALCIUM 8.3 MG/DL (8.5-10.1); CHLORIDE 101 MMOL/L (99-107); CREATININE 1.46 MG/DL (0.60-1.10); GLUCOSE 233 MG/DL (70-104); POTASSIUM 4.9 MMOL/L (3.5-5.1); SODIUM 136 MMOL/L (135-145); TOTAL CARBON DIOXIDE 24.1 MMOL/L (24-32); eGFR 48 ML/MIN
[2021-05-15] MEDS: dexamethasone sod phosphate 10mg/ml inj IV SCH ×2 (08:45→19:45)
[2021-05-15] MEDS: atorvastatin 20mg tablet PO SCH (08:46)
[2021-05-15] MEDS: furosemide 20MG tablet PO SCH (08:46)
[2021-05-15] MEDS: REMDESIVIR 100 MG in NS 100ml IVPB IV SCH (08:46)
[2021-05-15] MEDS: docusate sod 100mg capsule PO SCH ×2 (08:47→19:45)
[2021-05-15] MEDS: amLODIPine 2.5mg tablet PO SCH (08:47)
[2021-05-15] MEDS: OMEGA-3/DHA/EPA/FISH OIL 1 EACH CAPSULE.DR PO SCH (08:49)
[2021-05-15] MEDS: isosorbide mononitrate 30mg tab.SR.24H PO SCH (08:49)
[2021-05-15] MEDS: aspirin 81mg, enteric-coated 1 TAB TABLET.DR PO SCH (08:49)
[2021-05-15] MEDS: insulin Lispro (HumaLOG) vial - multi-dose SQ SCH ×2 (09:12→18:01)
--- NOTE | 2021-05-15 11:18 | NUR ---
O2 Sat at rest on room air:__88_% If below 89%: Recovery O2 Sat at rest on _4__LPM:___%:___% via nasal cannula (mask/nasal cannula, etc..) No further documentation is necessary. If O2 Sat did not drop below 89% on room air,ambulate patient on room air. O2 Sat while ambulating on room air:___% Recovery O2 Sat while ambulating on ___LPM:___% No further documentation is necessary. If patient does not drop below 89% while ambulating, he/she does not qualify for home O2.
[2021-05-15 11:23] VITALS: BP 95/60
[2021-05-15 11:56] LABS: D-DIMER 0.98 MG/L FEU (0-0.50)
[2021-05-15 17:18] VITALS: BP 98/50
[2021-05-15 18:00] VITALS: BP 76/53
[2021-05-15] MEDS ORDERED: ringers solution, lacted 1,000 ML IV ONE (19:20)
[2021-05-15] MEDS: enoxaparin 40mg/0.4ml syringe SUBCUT SCH (19:45)
--- NOTE | 2021-05-15 20:32 | NUR ---
Call placed to MD about blood pressure bei8ng low 77/49. Patient not in any apprent distress. Dr Esparza placed orders for a Bolus of LR followed by a continuous infusion of LR at 120. He said to follow the urine output and call him back to decrease the rate to 100ml/hr if the output is "adequate".
[2021-05-15] MEDS: ringers solution, lacted 1,000 ML IV SCH (21:03)
--- NOTE | 2021-05-15 21:37 | NUR ---
BB 164/79, P70 on left arm, 175/89 on right arm after the bolus of fluid. Dr. Vilma Swann made aware and requested to hold the fluid for now. Will continue to monitor.
[2021-05-15 22:00] VITALS: BP 159/79
[2021-05-15] MEDS: insulin glargine (Lantus) pen - multi-dose SQ SCH (22:37)
--- NOTE | 2021-05-16 00:07 | NUR ---
BS was 54 and asymptomatic. PO Juice given after one hour BS 112. Bedtime snack provided and ate 100%, No S/S of hypo/ hyperglycemia and S/S of hypo/hypertensive reaction at this time. Will continue to monitor.
[2021-05-16 02:00] VITALS: BP 148/76
[2021-05-16] MEDS: ringers solution, lacted 1,000 ML IV SCH ×3 (03:40→20:15)
[2021-05-16 06:00] VITALS: BP 182/94
[2021-05-16 07:32] LABS: D-DIMER 0.72 MG/L FEU (0-0.50)
[2021-05-16 07:42] LABS: BASOPHILS % (AUTO) 0.1 % (0-1); EOSINOPHILS % (AUTO) 0 % (0-6); HEMATOCRIT 37.5 % (42.0-52.0); HEMOGLOBIN 13.1 g/dl (14.0-17.9); LYMPHOCYTES # (AUTO) 0.6 X10'3 (1.1-4.8); LYMPHOCYTES % (AUTO) 6.2 % (21-51); MEAN CORPUSCULAR HEMOGLOBIN 29.1 PG (27.0-31.0); MEAN CORPUSCULAR HGB CONC 34.8 g/dL (33.0-36.5); MEAN CORPUSCULAR VOLUME 83.6 FL (78-98); MEAN PLATELET VOLUME 8.3 FL (7.4-10.4); MONOCYTES # (AUTO) 0.8 X10'3 (0-0.9); MONOCYTES % (AUTO) 8.3 % (2-12); NEUTROPHILS # (AUTO) 8.3 X10'3 (1.8-7.7); NEUTROPHILS % (AUTO) 85.4 % (42-75); PLATELET COUNT 251 X10'3 (140-440); RED BLOOD COUNT 4.48 X10'6 (4.70-6.10); RED CELL DISTRIBUTION WIDTH 13.8 % (11.5-14.5); WHITE BLOOD COUNT 9.7 X10'3 (4.5-11.0)
[2021-05-16 07:54] LABS: ALBUMIN 2.7 G/DL (3.4-5.0); ANION GAP 12 (8-16); BLOOD UREA NITROGEN 50 MG/DL (7-18); BUN/CREATININE RATIO 40.3 (5.4-32.0); C-REACTIVE PROTEIN 2.16 MG/DL (0.0-0.5); CALCIUM 8.5 MG/DL (8.5-10.1); CHLORIDE 103 MMOL/L (99-107); CREATININE 1.24 MG/DL (0.60-1.10); GLUCOSE 181 MG/DL (70-104); POTASSIUM 4.8 MMOL/L (3.5-5.1); SODIUM 136 MMOL/L (135-145); TOTAL CARBON DIOXIDE 20.8 MMOL/L (24-32); eGFR 58 ML/MIN
[2021-05-16] MEDS: dexamethasone sod phosphate 10mg/ml inj IV SCH ×2 (08:37→20:12)
[2021-05-16] MEDS: amLODIPine 2.5mg tablet PO SCH (08:38)
[2021-05-16] MEDS: furosemide 20MG tablet PO SCH (08:38)
[2021-05-16] MEDS: aspirin 81mg, enteric-coated 1 TAB TABLET.DR PO SCH (08:38)
[2021-05-16] MEDS: isosorbide mononitrate 30mg tab.SR.24H PO SCH (08:38)
[2021-05-16] MEDS: OMEGA-3/DHA/EPA/FISH OIL 1 EACH CAPSULE.DR PO SCH (08:38)
[2021-05-16] MEDS: docusate sod 100mg capsule PO SCH ×2 (08:38→20:14)
[2021-05-16] MEDS: lisinopril 20mg tablet PO SCH (08:39)
[2021-05-16] MEDS: atorvastatin 20mg tablet PO SCH (08:39)
[2021-05-16] MEDS: metoprolol tartrate 25mg tablet PO SCH ×2 (08:39→20:14)
[2021-05-16] MEDS: insulin Lispro (HumaLOG) vial - multi-dose SQ SCH ×3 (09:31→20:20)
[2021-05-16 11:00] VITALS: BP 126/81
[2021-05-16] MEDS: REMDESIVIR 100 MG in NS 100ml IVPB IV SCH (11:05)
[2021-05-16 15:00] VITALS: BP 90/43
[2021-05-16 18:00] VITALS: BP 107/65
--- NOTE | 2021-05-16 18:15 | NUR ---
Patient in room ORTHO 4020. I have received report from HIREN Meng and had the opportunity to ask questions and assume patient care.
[2021-05-16] MEDS: enoxaparin 40mg/0.4ml syringe SUBCUT SCH (20:12)
[2021-05-16 22:00] VITALS: BP 105/71
[2021-05-16] MEDS: insulin glargine (Lantus) pen - multi-dose SQ SCH (22:12)
[2021-05-17 02:00] VITALS: BP 119/68
[2021-05-17] MEDS: ringers solution, lacted 1,000 ML IV SCH ×3 (04:56→21:11)
[2021-05-17 05:00] VITALS: BP 140/81
--- NOTE | 2021-05-17 05:30 | NUR ---
Patient slept well through the night, no s/s of hypo/hyperglycemia noted. No s/s of hypotension during my shift. Tolerated all meds well. Safety measures and comfort maintained. Will continue to monitor.
--- NOTE | 2021-05-17 06:09 | NUR ---
Problems reprioritized. Patient report given, questions answered & plan of care reviewed with HIREN Meng.
[2021-05-17] MEDS: REMDESIVIR 100 MG in NS 100ml IVPB IV SCH (07:57)
[2021-05-17] MEDS: dexamethasone sod phosphate 10mg/ml inj IV SCH ×2 (07:57→18:47)
[2021-05-17] MEDS: OMEGA-3/DHA/EPA/FISH OIL 1 EACH CAPSULE.DR PO SCH (07:57)
[2021-05-17] MEDS: atorvastatin 20mg tablet PO SCH (07:59)
[2021-05-17] MEDS: aspirin 81mg, enteric-coated 1 TAB TABLET.DR PO SCH (07:59)
[2021-05-17] MEDS: furosemide 20MG tablet PO SCH (08:00)
[2021-05-17] MEDS: isosorbide mononitrate 30mg tab.SR.24H PO SCH (08:00)
[2021-05-17] MEDS ORDERED: ergocalciferol (vit D2) capsule 50,000 UNITS (1,250mcg) CAPSULE PO SCH (08:00)
[2021-05-17] MEDS: metoprolol tartrate 25mg tablet PO SCH ×2 (08:00→18:54)
[2021-05-17] MEDS: docusate sod 100mg capsule PO SCH ×2 (08:00→18:47)
[2021-05-17] MEDS: amLODIPine 2.5mg tablet PO SCH (08:00)
[2021-05-17] MEDS: lisinopril 20mg tablet PO SCH (08:01)
[2021-05-17] MEDS: insulin Lispro (HumaLOG) vial - multi-dose SQ SCH ×3 (08:17→18:49)
[2021-05-17 08:28] LABS: HEMATOCRIT 40.2 % (42.0-52.0); HEMOGLOBIN 13.9 g/dl (14.0-17.9); MEAN CORPUSCULAR HGB CONC 34.5 g/dL (33.0-36.5); MEAN CORPUSCULAR VOLUME 84.1 FL (78-98); RED BLOOD COUNT 4.78 X10'6 (4.70-6.10); RED CELL DISTRIBUTION WIDTH 13.8 % (11.5-14.5); WHITE BLOOD COUNT 8.5 X10'3 (4.5-11.0)
[2021-05-17 08:29] LABS: BASOPHILS % (AUTO) 0.3 % (0-1); EOSINOPHILS % (AUTO) 0 % (0-6); LYMPHOCYTES # (AUTO) 0.5 X10'3 (1.1-4.8); LYMPHOCYTES % (AUTO) 6.1 % (21-51); MEAN PLATELET VOLUME 8.2 FL (7.4-10.4); MONOCYTES # (AUTO) 0.8 X10'3 (0-0.9); MONOCYTES % (AUTO) 9.4 % (2-12); NEUTROPHILS # (AUTO) 7.2 X10'3 (1.8-7.7); NEUTROPHILS % (AUTO) 84.2 % (42-75); PLATELET COUNT 245 X10'3 (140-440)
[2021-05-17 08:37] LABS: D-DIMER 0.78 MG/L FEU (0-0.50)
[2021-05-17 08:38] LABS: ALBUMIN 2.8 G/DL (3.4-5.0); ANION GAP 9 (8-16); BLOOD UREA NITROGEN 36 MG/DL (7-18); C-REACTIVE PROTEIN 1.51 MG/DL (0.0-0.5); CALCIUM 8.3 MG/DL (8.5-10.1); CHLORIDE 101 MMOL/L (99-107); CREATININE 1.16 MG/DL (0.60-1.10); GLUCOSE 195 MG/DL (70-104); POTASSIUM 4.6 MMOL/L (3.5-5.1); SODIUM 135 MMOL/L (135-145); TOTAL CARBON DIOXIDE 24.8 MMOL/L (24-32); eGFR 63 ML/MIN
--- NOTE | 2021-05-17 15:32 | NUR ---
Initial: Pt admit DX COVID-19, PNA, CKD III per EMR. PO improving this admit to ~72% carb controlled/heart healthy meals yesterday partially meeting needs. SIMONE recommends Glucerna BIDLD to assist meeting protein/kcal needs; notified. LBM 04/20 receiving routine colace. Will continue to monitor. Rec: 1. continue heart healthy/carb controlled diet; encourage PO 2. Glucerna BIDLD; pending MD verification in EMR 3. routine bowel care 4. scaled wt this admit; subsequent weekly wts Addendum: 05/17/21 at [address] Amended: Links added.
[2021-05-17 17:00] VITALS: BP 113/68
[2021-05-17] MEDS ORDERED: NUT.TX.GLUC.INTOLER,LAC-FR,SOY (GLUCERNA) 237 ML PO SCH (17:30)
--- NOTE | 2021-05-17 18:45 | NUR ---
Patient in room [facility]TH[facility] 4020. I have received report from Taqueria MARADIAGA and had the opportunity to ask questions and assume patient care.
[2021-05-17] MEDS: enoxaparin 40mg/0.4ml syringe SUBCUT SCH (18:47)
[2021-05-17] MEDS: insulin glargine (Lantus) pen - multi-dose SQ SCH (21:08)
[2021-05-17 22:00] VITALS: BP 100/58
[2021-05-18] VITALS (7 sets, daily range): BP systolic 95–164; BP diastolic 57–92
[2021-05-18] MEDS: ringers solution, lacted 1,000 ML IV SCH (05:19)
--- NOTE | 2021-05-18 06:35 | NUR ---
Problems reprioritized. Patient report given, questions answered & plan of care reviewed with Mary MARADIAGA.
[2021-05-18] MEDS: OMEGA-3/DHA/EPA/FISH OIL 1 EACH CAPSULE.DR PO SCH (08:17)
[2021-05-18] MEDS: dexamethasone sod phosphate 10mg/ml inj IV SCH ×2 (08:18→20:57)
[2021-05-18] MEDS: lisinopril 20mg tablet PO SCH (08:19)
[2021-05-18] MEDS: furosemide 20MG tablet PO SCH (08:20)
[2021-05-18] MEDS: metoprolol tartrate 25mg tablet PO SCH ×2 (08:20→21:11)
[2021-05-18] MEDS: docusate sod 100mg capsule PO SCH ×2 (08:20→20:57)
[2021-05-18] MEDS: amLODIPine 2.5mg tablet PO SCH (08:20)
[2021-05-18] MEDS: atorvastatin 20mg tablet PO SCH (08:20)
[2021-05-18] MEDS: aspirin 81mg, enteric-coated 1 TAB TABLET.DR PO SCH (08:20)
[2021-05-18] MEDS: isosorbide mononitrate 30mg tab.SR.24H PO SCH (08:20)
[2021-05-18 08:26] LABS: EOSINOPHILS % (AUTO) 0 % (0-6); HEMOGLOBIN 13.8 g/dl (14.0-17.9)
[2021-05-18 08:28] LABS: BASOPHILS % (AUTO) 0.1 % (0-1); HEMATOCRIT 39.8 % (42.0-52.0); LYMPHOCYTES # (AUTO) 0.6 X10'3 (1.1-4.8); LYMPHOCYTES % (AUTO) 5.3 % (21-51); MEAN CORPUSCULAR HEMOGLOBIN 28.8 PG (27.0-31.0); MEAN CORPUSCULAR HGB CONC 34.6 g/dL (33.0-36.5); MEAN CORPUSCULAR VOLUME 83.4 FL (78-98); MEAN PLATELET VOLUME 8.3 FL (7.4-10.4); MONOCYTES % (AUTO) 9.2 % (2-12); NEUTROPHILS # (AUTO) 9.1 X10'3 (1.8-7.7); NEUTROPHILS % (AUTO) 85.4 % (42-75); PLATELET COUNT 258 X10'3 (140-440); RED BLOOD COUNT 4.77 X10'6 (4.70-6.10); RED CELL DISTRIBUTION WIDTH 13.7 % (11.5-14.5); WHITE BLOOD COUNT 10.6 X10'3 (4.5-11.0)
[2021-05-18 08:48] LABS: ALBUMIN 2.7 G/DL (3.4-5.0); ANION GAP 7 (8-16); BLOOD UREA NITROGEN 29 MG/DL (7-18); CALCIUM 8.4 MG/DL (8.5-10.1); CHLORIDE 104 MMOL/L (99-107); CREATININE 1.16 MG/DL (0.60-1.10); GLUCOSE 68 MG/DL (70-104); POTASSIUM 4.2 MMOL/L (3.5-5.1); SODIUM 139 MMOL/L (135-145); TOTAL CARBON DIOXIDE 27.9 MMOL/L (24-32); eGFR 63 ML/MIN
[2021-05-18] MEDS: insulin Lispro (HumaLOG) vial - multi-dose SQ SCH ×2 (12:57→18:53)
--- NOTE | 2021-05-18 19:16 | NUR ---
report given to sonia Rn, all questions answered. No distress, pt lying in bed comfortably
[2021-05-18] MEDS: enoxaparin 40mg/0.4ml syringe SUBCUT SCH (20:58)
--- NOTE | 2021-05-18 22:00 | NUR ---
on salter oxygen not high flow oxygen Addendum: 05/19/21 at 0325 by Ness Griffin RN Amended: Links added.
[2021-05-18] MEDS: insulin glargine (Lantus) pen - multi-dose SQ SCH (22:49)
[2021-05-19 02:00] VITALS: BP 93/58
--- NOTE | 2021-05-19 03:14 | NUR ---
wearing salter oxygen not high flow oxygen Addendum: 05/19/21 at 0321 by Ness Griffin RN Amended: Links added.
[2021-05-19 06:00] VITALS: BP 96/55
--- NOTE | 2021-05-19 06:03 | NUR ---
oxygen sat down to 83%on 8liters salter so I increased him to 12 liters salter and he went up to 90-91%spo2.
--- NOTE | 2021-05-19 06:10 | NUR ---
received report from trisha ontiveros
[2021-05-19] MEDS: amLODIPine 2.5mg tablet PO SCH (07:22)
[2021-05-19] MEDS: furosemide 20MG tablet PO SCH (07:22)
[2021-05-19] MEDS: lisinopril 20mg tablet PO SCH (07:22)
[2021-05-19] MEDS: docusate sod 100mg capsule PO SCH ×2 (07:24→18:36)
[2021-05-19] MEDS: metoprolol tartrate 25mg tablet PO SCH ×2 (07:25→18:43)
[2021-05-19] MEDS: dexamethasone sod phosphate 10mg/ml inj IV SCH ×2 (07:25→20:22)
[2021-05-19] MEDS: atorvastatin 20mg tablet PO SCH (07:25)
[2021-05-19] MEDS: isosorbide mononitrate 30mg tab.SR.24H PO SCH (07:25)
[2021-05-19] MEDS: OMEGA-3/DHA/EPA/FISH OIL 1 EACH CAPSULE.DR PO SCH (07:25)
[2021-05-19] MEDS: aspirin 81mg, enteric-coated 1 TAB TABLET.DR PO SCH (07:25)
[2021-05-19] MEDS: insulin Lispro (HumaLOG) vial - multi-dose SQ SCH ×3 (09:03→18:34)
[2021-05-19 10:00] VITALS: BP 92/47
[2021-05-19 18:00] VITALS: BP 95/50
--- NOTE | 2021-05-19 18:23 | NUR ---
gave report to trisha roach
[2021-05-19] MEDS: enoxaparin 40mg/0.4ml syringe SUBCUT SCH (18:36)
--- NOTE | 2021-05-19 20:23 | NUR ---
SCANNED MEDS TO ADMINISTER TO PATIENT, BUT DECADRON DID NOT SAVE SCANNED. USED ADMINISTER BUTTON FOR MED THAT WAS GIVEN WITH REST TO 2000 MEDICATIONS
[2021-05-19] MEDS: insulin glargine (Lantus) pen - multi-dose SQ SCH (21:17)
[2021-05-19 22:00] VITALS: BP 126/61
[2021-05-20 02:00] VITALS: BP 136/68
[2021-05-20 06:00] VITALS: BP 156/80
[2021-05-20] MEDS: OMEGA-3/DHA/EPA/FISH OIL 1 EACH CAPSULE.DR PO SCH (07:12)
[2021-05-20] MEDS: aspirin 81mg, enteric-coated 1 TAB TABLET.DR PO SCH (07:12)
[2021-05-20] MEDS: lisinopril 20mg tablet PO SCH (07:12)
[2021-05-20] MEDS: dexamethasone sod phosphate 10mg/ml inj IV SCH ×2 (07:13→20:17)
[2021-05-20] MEDS: furosemide 20MG tablet PO SCH (07:13)
[2021-05-20] MEDS: docusate sod 100mg capsule PO SCH ×2 (07:13→20:00)
[2021-05-20] MEDS: isosorbide mononitrate 30mg tab.SR.24H PO SCH (07:13)
[2021-05-20] MEDS: atorvastatin 20mg tablet PO SCH (07:13)
[2021-05-20] MEDS: amLODIPine 2.5mg tablet PO SCH (07:13)
[2021-05-20] MEDS: metoprolol tartrate 25mg tablet PO SCH ×2 (07:14→20:17)
[2021-05-20 10:00] VITALS: BP 80/52
[2021-05-20] MEDS: insulin Lispro (HumaLOG) vial - multi-dose SQ SCH ×2 (12:50→20:15)
[2021-05-20 14:00] VITALS: BP 93/59
[2021-05-20 18:36] VITALS: BP 132/75
[2021-05-20] MEDS: insulin glargine (Lantus) pen - multi-dose SQ SCH (20:15)
[2021-05-20] MEDS: enoxaparin 40mg/0.4ml syringe SUBCUT SCH (20:17)
[2021-05-20 22:00] VITALS: BP 147/75
--- NOTE | 2021-05-20 22:41 | NUR ---
HUMALOG VIAL WAS NOT FOUND FOR TREATMENT AFTER DINNER. PAGED PHARMACY. RECEIVED AT 1999 AND COVERED PATIENT FOR BOTH LONG ACTING AND SHORT ACTING.
[2021-05-21 02:13] VITALS: BP 157/79
[2021-05-21 06:00] VITALS: BP 123/70
[2021-05-21] MEDS ORDERED: DEC4T PO (06:56)
[2021-05-21] MEDS ORDERED: APIX5TAB3 PO (06:56)
[2021-05-21 07:01] LABS: D-DIMER 0.68 MG/L FEU (0-0.50)
[2021-05-21] MEDS: OMEGA-3/DHA/EPA/FISH OIL 1 EACH CAPSULE.DR PO SCH (07:35)
[2021-05-21] MEDS: lisinopril 20mg tablet PO SCH (07:36)
[2021-05-21] MEDS: metoprolol tartrate 25mg tablet PO SCH (07:36)
[2021-05-21] MEDS: amLODIPine 2.5mg tablet PO SCH (07:37)
[2021-05-21] MEDS: atorvastatin 20mg tablet PO SCH (07:37)
[2021-05-21] MEDS: docusate sod 100mg capsule PO SCH (07:37)
[2021-05-21] MEDS: furosemide 20MG tablet PO SCH (07:37)
[2021-05-21] MEDS: aspirin 81mg, enteric-coated 1 TAB TABLET.DR PO SCH (07:37)
[2021-05-21] MEDS: isosorbide mononitrate 30mg tab.SR.24H PO SCH (07:37)
[2021-05-21] MEDS ORDERED: dexamethasone sod phosphate 10mg/ml inj IV SCH (08:00)
[2021-05-21] MEDS: insulin Lispro (HumaLOG) vial - multi-dose SQ SCH (09:30)
[2021-05-21 10:00] VITALS: BP 81/46
--- NOTE | 2021-05-21 11:24 | NUR ---
O2 Sat at rest on room air:__94_% If below 89%: Recovery O2 Sat at rest on ___LPM:___%:___% via (mask/nasal cannula, etc..) No further documentation is necessary. If O2 Sat did not drop below 89% on room air,ambulate patient on room air. O2 Sat while ambulating on room air:_86__% Recovery O2 Sat while ambulating on __4_LPM:_94__% No further documentation is necessary. If patient does not drop below 89% while ambulating, he/she does not qualify for home O2.
== END 2021-05-21 14:00 | disposition home health service (06) | DRG 177 ==
LOC: ER 11:40 → ED HOLD 14:08 → ORTHO 4S 19:10
PROVIDERS: ADMIT Internal Medicine; ATTEND Internal Medicine
PROC: XW033E5 Introduction of Remdesivir Anti-infective into Peripheral Vein, Percutaneous Approach, New Technology Group 5 (ICD-10-PCS; principal; 2021-05-13)
PROC: 5A0935A Assistance with Respiratory Ventilation, Less than 24 Consecutive Hours, High Flow/Velocity Cannula (ICD-10-PCS; 2021-05-14)
PROC: 5A0935A Assistance with Respiratory Ventilation, Less than 24 Consecutive Hours, High Flow/Velocity Cannula (ICD-10-PCS; 2021-05-16)
PROC: 5A0935A Assistance with Respiratory Ventilation, Less than 24 Consecutive Hours, High Flow/Velocity Cannula (ICD-10-PCS; 2021-05-17)
PROC: 5A0935A Assistance with Respiratory Ventilation, Less than 24 Consecutive Hours, High Flow/Velocity Cannula (ICD-10-PCS; 2021-05-18)
PROC: 5A0935A Assistance with Respiratory Ventilation, Less than 24 Consecutive Hours, High Flow/Velocity Cannula (ICD-10-PCS; 2021-05-19)
PROC: 5A0935A Assistance with Respiratory Ventilation, Less than 24 Consecutive Hours, High Flow/Velocity Cannula (ICD-10-PCS; 2021-05-20)
DX: U07.1 COVID-19 (principal); J96.21 Acute and chronic respiratory failure with hypoxia; J12.82 Pneumonia due to coronavirus disease 2019; N17.9 Acute kidney failure, unspecified; N18.30 Chronic kidney disease, stage 3 unspecified; E11.22 Type 2 diabetes mellitus with diabetic chronic kidney disease; E78.00 Pure hypercholesterolemia, unspecified; E78.5 Hyperlipidemia, unspecified; I12.9 Hypertensive chronic kidney disease with stage 1 through stage 4 chronic kidney disease, or unspecified chronic kidney disease; I25.10 Atherosclerotic heart disease of native coronary artery without angina pectoris; E87.5 Hyperkalemia; J43.9 Emphysema, unspecified; Z79.01 Long term (current) use of anticoagulants; I25.2 Old myocardial infarction; Z79.82 Long term (current) use of aspirin; Z79.899 Other long term (current) drug therapy; Z83.3 Family history of diabetes mellitus; Z95.1 Presence of aortocoronary bypass graft; Z79.84 Long term (current) use of oral hypoglycemic drugs; Z95.5 Presence of coronary angioplasty implant and graft; Z82.49 Family history of ischemic heart disease and other diseases of the circulatory system; I95.9 Hypotension, unspecified
CPT/HCPCS: 36415; 71045; 80048; 80053; 82948; 83036; 83605; 83880; 84100; 84145; 84484; 85025; 85379; 86140; 87040; 87081; 94760; 97110; 97116; 97161; 99285; G0378; J1100; J1650; J1815; J7120

== ENCOUNTER 2025-03-27 11:04 | Emergency (ER) | payer MEDICARE, MEDICAID ==
[~2025-03-27] VITALS: Ht 172.7 cm; Wt 87.7 kg
[~2025-03-27 11:04] MED LIST changes: +ALBU18HF2 PO; -AMLO2.5T2 PO; +APIX5TAB3 PO; -BUDE10.2 INH; -FLO0.4C PO; -GLIP10TA11 PO; +GLIP10TA18 PO
[2025-03-27 11:14] VITALS: TEMP 97.3
--- NOTE | 2025-03-27 11:56 | RADIOLOGY REPORT ---
CLINICAL INDICATION: pain; trauma TECHNIQUE: 2 radiographic views of the left clavicle were obtained. Comparison: None FINDINGS/IMPRESSION: Comminuted fracture of the distal left clavicle.
[2025-03-27] MEDS: HYDROcodone/acetaminophen 10/325mg tab PO ONE (12:11)
[2025-03-27] MEDS ORDERED: HYDR-3965 PO ×2 (12:14→12:16)
--- NOTE | 2025-03-27 12:14 | Physician Documentation ---
History of Present Illness ~ Chief Complaint: Mechanical Fall Stated Complaint: FALL Time Seen by MD: 11:56 Primary Medical Doctor: dalila DESIR 70-year-old male presents after tripping on a rug today and injuring his left shoulder that he has a history of previous clavicle fracture. Feels like the same when he fractured it before. He has any numbness or tingling has some range of motion, but it hurts for him to perform Day of Fall: Mar 27, 2025 Tetanus within 5 Years?: No Medication Reconciliation Allergies: Coded Allergies: No Known Allergies (Unverified , 03/27/25) Scheduled Apixaban (Eliquis), 2.5 MG PO BID Aspirin (Aspir 81), 1 TAB PO DAILY, (Reported) Empagliflozin (Jardiance), 1 TAB PO DAILY, (Reported) Ergocalciferol (Vitamin D2) (Vitamin D2), 1.25 MG WEEKLY, (Reported) Furosemide* (Lasix*), 1 TAB PO DAILY, (Reported) Glipizide (Glipizide), 1 TAB PO Q12H, (Reported) Isosorbide Mononitrate (Isosorbide Mononitrate Er), 1 TAB PO DAILY, (Reported) Lisinopril (Lisinopril), 2 TAB PO DAILY, (Reported) Metformin Hcl* (Glucophage*), 1,000 MG PO BID, (Reported) Metoprolol Tartrate (Lopressor), 0.5 TAB PO Q12H, (Reported) [place]-3 Fatty Acids/Fish Oil (Fish Oil 1,000 Mg Softgel), 1 CAP PO DAILY, (Reported) Rosuvastatin Calcium* (Crestor*), 1 TAB PO DAILY, (Reported) Scheduled PRN Albuterol Sulfate (Ventolin Hfa), 2 PUFFS PO Q4H PRN for SOB or wheezing, (Reported) Hydrocodone Bit/Acetaminophen 5/325 MG (Derby 5/325 MG), 1 TAB PO Q6H PRN for pain Nitroglycerin SL* (Nitrostat SL*), 1 TAB SL Q5MIN PRN for Chest pain Q5min PRNx3-call MD, (Reported) Past Medical History Past Medical History: Coronary Artery Disease, High Cholesterol, Hypertension, Myocardial Infarction, COPD, Emphysema, Diabetes Past Surgical History: coronary bypass surgery, orthopedic surgeries Patient History: (CAD) Coronary arteriosclerosis FATHER, Onset:60 years & older MOTHER, Onset:60 years & older (DM Type 2) Diabetes mellitus type 2 FATHER, Onset:50's - 60 MOTHER, Onset:60 years & older ([place]) Myocardial infarction MOTHER, Onset:69 Alcohol Use: None Drug Use: none Lives with: Spouse Lives In: Home Review of Systems All Other Systems at this time: Reviewed and Negative ROS As stated above in the HPI, otherwise all systems are reviewed and negative. Physical Exam Vital Signs: Temperature: 97.3, Source: Temporal, Heart Rate: 70, Respiratory Rate: 18, BP: 146/71, Pulse Oximetry: 96, Weight: 87.730 Physical Exam General: Alert, no apparent distress. HEENT: PERRL, EOMI, no injection, moist mucous membranes. Neck: Full range of motion. Respiratory: Lungs clear, no respiratory distress. Chest: No accessory muscle use. Extremities: Decreased range of motion of the left arm notable deformity on proximal left clavicle, tenderness in the distal aspect of the left clavicle no skin tenting Neurologic: Oriented x4. Psychiatric: Normal mood and affect. Skin: Normal color, warm and dry. No edema, no ecchymosis. Progress Results/Orders Results/Orders Orders - EDIN DAY CHIEF UNDERWRITER Clavicle (03/27/25 11:33) Completed Orders - EDIN DAY CHIEF UNDERWRITER Clavicle (03/27/25 11:33) Hydrocodone/Apap 10/325 (Derby 10/325mg (03/27/25 12:10) Medications Received in ER Medications (Trade) Dose Ordered Sig/Nubia Route PRN Reason Start Time Stop Time Status Last Admin Dose Admin (Derby 10/325mg tab) 1 tab ONCE ONCE PO 03/27/25 12:10 03/27/25 12:11 DC 03/27/25 12:11 1 TAB Vital Signs 03/27/25 03/27/25 03/27/25 11:14 12:11 12:19 Temp 97.3 Pulse 70 74 Resp 18 14 16 B/P (MAP) 146/71 134/68 Pulse Ox 96 99 Medical Decision Making Findings Per my interpretation of the patient's clavicle x-ray he does have a comminuted distal left clavicle fracture. Evidence severe displacement or skin tenting.. Put him in his sling and have him follow up in the outpatient setting with the send some Derby to the pharmacy to help with pain and inflammation Differential Dx:Considerations: Include: Closed head injury, Cardiac injury, Fracture(s), Intraabdominal injury, Pneumothorax, Cerebral contusion, Pulmonary contusion, Spine injury, Tracheal injury, Urological injury, Vascular injury, Abrasion(s), Contusion(s), Foreign body(s), Hematoma(s), Laceration(s), Encephalopathy, Other Departure Disposition: 01 HOME / SELF CARE / HOMELESS Impression: Primary Impression: Fall Additional Impression: Clavicle fracture Condition: Stable Discharge Instructions: Fall Prevention in the Home, Adult, [id number] Additional Instructions: Make sure to follow up with the primary care and/or Orthopedics for further evaluation of your clavicle fracture Referrals: NO PRIMARY CARE PROVIDER (PCP) Prescriptions Hydrocodone Bit/Acetaminophen 5/325 MG (Derby 5/325 MG) 5 Mg/325 Mg Tablet 1 TAB PO Q6H PRN for pain, #14 TAB Prov: EDIN DAY NP 03/27/25 Signature Scribe Signature: g Attestation: Scribed for Edin Day Security Delivery Specialist by Edin Feliz NP . 03/27/25 12:13 EDIN DAY NP Mar 27, 2025 12:14
[2025-03-27 12:19] VITALS: BP 134/68; PULSE 74; RESP 16; O2SAT 99
== END 2025-03-27 12:51 | disposition home or self-care (01) ==
LOC: ER 11:04
DX: S42.032A Displaced fracture of lateral end of left clavicle, initial encounter for closed fracture (principal); E11.9 Type 2 diabetes mellitus without complications; E78.00 Pure hypercholesterolemia, unspecified; I10 Essential (primary) hypertension; I25.10 Atherosclerotic heart disease of native coronary artery without angina pectoris; I25.2 Old myocardial infarction; J43.9 Emphysema, unspecified; Z95.1 Presence of aortocoronary bypass graft; Z79.82 Long term (current) use of aspirin; W19.XXXA Unspecified fall, initial encounter; Y93.89 Activity, other specified; Y92.89 Other specified places as the place of occurrence of the external cause; Y99.8 Other external cause status
CPT/HCPCS: 73000; 99283